=== PATIENT | male | born 1985 | race Caucasian/White ===

== ENCOUNTER 2016-03-21 06:52 | Observation (INO) | payer BC ==
[~2016-03-21] VITALS: Ht 180.3 cm; Wt 128.0 kg
[~2016-03-21 06:52] MED LIST: ATARAX,VISTARIL25 MG PO; ATIVAN1 MG PO; BLOOD PRESSURE MED; CEFDINIR300 MG PO; CLEOCIN300 MG PO; CYANOCOBALAM1000 MCG PO; DEXILANT60 MG PO; Keflex PO; LISINOPRIL10 MG PO; Lasix PO; MAALOX MAXIMUM355 ML PO; METOPROLOL SUC100 MG PO; Motrin PO; OMEGA 3-6-91200 MG PO; OMEPRAZOLE40 M1 PO; PREDNISONE20 MG PO; PROTONIX20 MG PO; THERAGRAN1 TABLET PO; ULTRAM50 MG PO
[2016-03-21 07:52] LABS: HEMATOCRIT 45.9 % (38.0-50.0); MCH 31.7 PG (29.0-34.0); MCHC 36.6 G/DL (30.0-36.0); MCV 86.6 FL (86-99); MEAN PLAT.VOLUME 9.9 uM^3 (9.0-12.4); PLATELET COUNT 233 K/uL (156-360); RBC DIS.WIDTH-CV 12.2 % (11.8-14.6); RBC DIS.WIDTH-SD 38.3 % (39-53); WHITE BLOOD COUNT 13.2 K/uL (4.1-10.2)
[2016-03-21 08:01] LABS: CHLORIDE 107 mEq/L (99-109); POTASSIUM 3.9 mEq/L (3.7-5.4); SODIUM 140 mEq/L (136-147)
[2016-03-21 08:03] LABS: GLUCOSE 135 mg/dL (70-99)
[2016-03-21 08:04] LABS: ANION GAP 12 MEQ/L (2-14)
[2016-03-21 08:05] LABS: TOTAL BILIRUBIN 0.8 mg/dL (0.0-1.0)
[2016-03-21 08:06] LABS: ALKALINE PHOSPHATASE 77 IU/L (3-129)
[2016-03-21 08:07] LABS: GFR ESTIMATE (CALCULATED) > 59 mL/min/
[2016-03-21 08:08] LABS: UREA NITROGEN (BUN) 12 mg/dL (9-23)
[2016-03-21 08:10] LABS: LIPASE 7 U/L (1.0-51.0)
[2016-03-21] MEDS ORDERED: CENTRUM MEN'S1 EACH PO (10:28)
[2016-03-21] MEDS ORDERED: OMEGA 3-6-9 11200 MG PO (10:28)
[2016-03-21] MEDS ORDERED: CLARITIN,ALAVAR10 MG PO (10:30)
[2016-03-21 12:50] VITALS: BP 132/92
[2016-03-21 18:09] VITALS: BP 121/68
[2016-03-21 22:16] VITALS: BP 132/78
[2016-03-21 23:09] LABS: C DIFF TOXIN POSITIVE (NEGATIVE)
[2016-03-21 23:10] LABS: PROBE CHECK PASS
[2016-03-22 04:15] VITALS: BP 138/76
[2016-03-22 06:32] LABS: ANION GAP 8 MEQ/L (2-14); CHLORIDE 109 MEQ/L (99-109); GFR ESTIMATE (CALCULATED) > 59 mL/min/; GLUCOSE 102 mg/dL (70-99); POTASSIUM 3.8 MEQ/L (3.7-5.4); SAMPLE HEMOLYSIS CHECK 0; SAMPLE ICTERIC CHECK 0; SAMPLE LIPEMIA CHECK 0; SODIUM 142 MEQ/L (136-147); UREA NITROGEN (BUN) 12 mg/dL (9-23)
[2016-03-22 06:49] LABS: HEMATOCRIT 41.4 % (38.0-50.0); MCH 30.8 PG (29.0-34.0); MCHC 33.6 G/DL (30.0-36.0); MEAN PLAT.VOLUME 10.4 uM^3 (9.0-12.4); PLATELET COUNT 200 K/uL (156-360); RBC DIS.WIDTH-CV 12.7 % (11.8-14.6); RBC DIS.WIDTH-SD 42.4 % (39-53); RED BLOOD COUNT 4.51 M/uL (4.00-5.50); WHITE BLOOD COUNT 9.4 K/uL (4.1-10.2)
[2016-03-22 06:51] LABS: MCV 91.8 FL (86-99)
[2016-03-22 08:53] VITALS: BP 123/80
[2016-03-22 12:09] VITALS: BP 118/60
[2016-03-22 15:30] VITALS: BP 117/70
[2016-03-22 21:00] VITALS: BP 132/80
[2016-03-23 00:15] VITALS: BP 127/66
[2016-03-23 03:31] VITALS: BP 118/80
[2016-03-23 08:13] VITALS: BP 146/95
[2016-03-23 09:20] LABS: MCH 31.7 PG (29.0-34.0); MCHC 34.4 G/DL (30.0-36.0); MCV 92.1 FL (86-99); MEAN PLAT.VOLUME 10.4 uM^3 (9.0-12.4); PLATELET COUNT 187 K/uL (156-360); RBC DIS.WIDTH-CV 12.5 % (11.8-14.6); RBC DIS.WIDTH-SD 42.1 % (39-53); RED BLOOD COUNT 4.45 M/uL (4.00-5.50); WHITE BLOOD COUNT 6.9 K/uL (4.1-10.2)
[2016-03-23 09:46] LABS: ANION GAP 6 MEQ/L (2-14); CHLORIDE 111 MEQ/L (99-109); GFR ESTIMATE (CALCULATED) > 59 mL/min/; GLUCOSE 93 mg/dL (70-99); POTASSIUM 4.1 MEQ/L (3.7-5.4); SAMPLE HEMOLYSIS CHECK 0; SAMPLE ICTERIC CHECK 0; SAMPLE LIPEMIA CHECK 0; SODIUM 141 MEQ/L (136-147); UREA NITROGEN (BUN) 10 mg/dL (9-23)
[2016-03-23] MEDS ORDERED: FLAGYL500 MG PO (11:11)
[2016-03-23] MEDS ORDERED: PEPCID20 MG PO (11:11)
[2016-03-23] MEDS ORDERED: DICYCLOMINE HCL10 MG PO (11:11)
== END 2016-03-23 11:51 | disposition home or self-care (01) ==
LOC: EME 06:52 → EDOF 09:59 → 5WEST 12:10
PROVIDERS: Internal Medicine; Nurse Practitioner Adult Health; Nurse Practitioner Family
DX: K52.9 Noninfective gastroenteritis and colitis, unspecified (principal); B96.89 Other specified bacterial agents as the cause of diseases classified elsewhere; R10.9 Unspecified abdominal pain; I10 Essential (primary) hypertension; Z86.19 Personal history of other infectious and parasitic diseases; Z87.81 Personal history of (healed) traumatic fracture; F17.210 Nicotine dependence, cigarettes, uncomplicated; D72.829 Elevated white blood cell count, unspecified; E86.0 Dehydration
CPT/HCPCS: 74020; 74177; 80048; 80053; 83690; 85027; 87493; 87506; 93005; 99281; 99285; C9113; G0378; J0744; J1200; J1885; J2270; J2405; J2765; J7030; J7040; J7042; S0030